=== PATIENT | male | born 1970 | race Caucasian/White ===

== ENCOUNTER 2024-10-13 18:58 | Inpatient (IN) | payer OTHER ==
[2024-10-13 19:24] VITALS: BMI 31.4
[2024-10-13] MEDS ORDERED: NALOXONE (NARCAN) HCL 4 MG/0.1 ML SPRAY NS PRN (19:43)
[2024-10-13] MEDS ORDERED: NICOTINE POLACRILEX 2 MG GUM BUC PRN (19:43)
[2024-10-13] MEDS ORDERED: ONDANSETRON *ODT* 4 MG TABLET SL PRN (19:43)
[2024-10-13] MEDS ORDERED: NICOTINE POLACRILEX 2 MG LOZENGE BC PRN (19:43)
[2024-10-13] MEDS ORDERED: ACETAMINOPHEN 325 MG TABLET (FP) PO PRN (19:43)
[2024-10-13] MEDS ORDERED: BENZONATATE 200 MG CAPSULE PO PRN (19:43)
[2024-10-13] MEDS ORDERED: POLYETHYLENE GLYCOL (HEALTHYLAX) 3350 17 GM PACKET PO PRN (19:43)
[2024-10-13] MEDS ORDERED: BISMUTH SUBSALICYLATE 524 MG/30 ML PO PRN (19:43)
[2024-10-13] MEDS ORDERED: guaiFENesin 600 MG TABLET.ER (FP) PO PRN (19:43)
[2024-10-13] MEDS ORDERED: IBUPROFEN 400 MG TABLET (FP) PO PRN (19:43)
[2024-10-13] MEDS ORDERED: BENZOCAINE/MENTHOL (CHLORASEPTIC ) LOZENGE MM PRN (19:43)
[2024-10-13] MEDS ORDERED: LOPERAMIDE HCL 2 MG CAPSULE PO PRN (19:43)
[2024-10-13] MEDS ORDERED: MAGNESIUM HYDROX 2400MG/30ML ORAL SUSPENSION 30 ML CUP PO PRN (19:43)
[2024-10-13] MEDS ORDERED: DICYCLOMINE HCL 10 MG CAPSULE PO PRN (19:43)
[2024-10-13] MEDS ORDERED: ASPIRIN 81 MG CHEWABLE TABLETS ONE (19:55)
[2024-10-13] MEDS: ASPIRIN 81 MG CHEWABLE TABLETS PO ONE (20:24)
[2024-10-13] MEDS: MELATONIN 5 MG TABLETS PO SCH (21:54)
[2024-10-13] MEDS: IBUPROFEN 600 MG TABLET (FP) PO PRN (21:57)
[2024-10-13] MEDS: hydrOXYzine PAMOATE 25 MG CAPSULE (FP) PO PRN (21:57)
[2024-10-13] MEDS: THIAMINE 100 MG TABLET PO SCH (21:58)
[2024-10-13] MEDS: cloNIDine HCL 0.1 MG TABLET PO PRN (22:00)
[2024-10-13] MEDS: cloNIDine HCL 0.1 MG TABLET PO ONE (22:01)
[2024-10-14] MEDS: P-EPHED 60MG/TRIPROLIDI 2.5MG TABLET PO PRN (06:04)
[2024-10-14] MEDS ORDERED: methaDONE HCL 10 MG TABLET (FOR DETOX USE ONLY) PO PRN (08:45)
[2024-10-14] MEDS: methaDONE HCL 10 MG TABLET (FOR DETOX USE ONLY) PO ONE (09:20)
[2024-10-14] MEDS: PRENATAL VITAMINS W/ FOLIC ACID TABLET (FP) PO SCH (09:20)
[2024-10-14 11:11] LABS: HEMATOCRIT 37.6 % (35.4-49); HEMOGLOBIN 12.6 GM/dL (11.7-16.9); MCH 30.1 pg (25.7-33.7); MCHC 33.5 g/dl (32.0-35.9); MEAN CELL VOLUME 89.8 fl (80-96); MEAN PLT VOLUME 8.2 fl (7.5-11.1); PLATELET COUNT 516 10^3/uL (134-434); RBC 4.19 M/mm3 (4.00-5.60); RDW 14.6 % (11.9-15.9); WHITE BLOOD COUNT 8.2 K/mm3 (4.0-10.0)
[2024-10-14 11:50] LABS: CHLORIDE 103 mmol/L (98-107); POTASSIUM 4.5 mmol/L (3.5-5.1); SODIUM 140 mmol/L (136-145)
[2024-10-14 12:00] LABS: CALCIUM 8.9 mg/dL (8.5-10.1)
[2024-10-14 12:01] LABS: ALBUMIN 3.5 g/dl (3.4-5.0); ANION GAP 9 mmol/L (4-13); BLOOD UREA NITROGEN 22.8 mg/dL (7-18); CO2 29 mmol/L (21-32); GLUCOSE,RANDOM 114 mg/dL (74-106)
[2024-10-14 12:03] LABS: CREATININE 0.9 mg/dL (0.55-1.3); SGOT/AST 14 U/L (15-37)
[2024-10-14 12:06] LABS: BILIRUBIN,TOTAL 0.3 mg/dL (0.2-1); TOT PROT 6.9 g/dl (6.4-8.2)
[2024-10-14 12:07] LABS: ALK PHOS 113 U/L (45-117)
[2024-10-14 12:17] LABS: SGPT/ALT 23 U/L (13-61)
[2024-10-14] MEDS: METHOCARBAMOL 500 MG TABLET PO PRN (13:16)
[2024-10-14] MEDS: MAG HYDROX/AL HYDROX/SIMETH 30 ML UNIT-DOSE CUP PO PRN (13:16)
[2024-10-14] MEDS: diazePAM 5 MG TABLET PO PRN (16:02)
[2024-10-14] MEDS: CAMPHOR TP PRN (18:12)
[2024-10-14] MEDS: MENTHOL TP PRN (18:12)
[2024-10-14] MEDS: [UNRECOGNIZED DRUG - OTHER] TP PRN (18:12)
[2024-10-14] MEDS: EUCALYPTUS OIL TP PRN (18:12)
[2024-10-15] MEDS: ASPIRIN 81 MG CHEWABLE TABLETS PO SCH (09:06)
[2024-10-15 09:12] VITALS: BP 147/108; PULSE 88; RESP 17; TEMP 98.9
[2024-10-16] MEDS ORDERED: methaDONE HCL 10 MG TABLET (FOR DETOX USE ONLY) PO ONE (10:00)
[2024-10-18] MEDS ORDERED: methaDONE HCL 10 MG TABLET (FOR DETOX USE ONLY) PO ONE (10:00)
== END 2024-10-15 12:00 | disposition home or self-care (01) | DRG 773 ==
LOC: YASAS 18:58 → Y6N 20:25
PROVIDERS: ADMIT Allergy & Immunology; ATTEND Allergy & Immunology
PROC: HZ2ZZZZ Detoxification Services for Substance Abuse Treatment (ICD-10-PCS; principal; 2024-10-13)
DX: F11.23 Opioid dependence with withdrawal (principal); F13.20 Sedative, hypnotic or anxiolytic dependence, uncomplicated; F12.20 Cannabis dependence, uncomplicated; F17.210 Nicotine dependence, cigarettes, uncomplicated; F19.282 Other psychoactive substance dependence with psychoactive substance-induced sleep disorder; F19.280 Other psychoactive substance dependence with psychoactive substance-induced anxiety disorder; I10 Essential (primary) hypertension
CPT/HCPCS: 36415; 80053; 80305; 80307; 85027; 86780; 93005; 93010